=== PATIENT | male | born 1995 | race African-American/Black ===

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

== ENCOUNTER 2017-02-15 10:17 | Emergency (ER) | payer MEDICAID ==
[2017-02-15] MEDS: BOOSTRIX IM ONE (11:14)
--- NOTE | 2017-02-15 11:30 | Emergency Department Report ---
ED Laceration [facility] - HPI Chief Complaint: Wound/Laceration Stated Complaint: HEAD LACERATION Time Seen by Provider: 02/15/17 11:25 Location: Head Severity: mild Tetanus Status: Not up to Date Laceration Symptoms: No Foreign Body Sensation, No Numbness, No Weakness, No Pain ED Review of Systems ROS: Stated complaint: HEAD LACERATION Other details as noted in HPI Constitutional: denies: chills, fever Eyes: denies: eye pain, eye discharge, vision change ENT: denies: ear pain, throat pain Respiratory: denies: cough, shortness of breath, wheezing Cardiovascular: denies: chest pain, palpitations Endocrine: no symptoms reported Gastrointestinal: denies: abdominal pain, nausea, diarrhea Genitourinary: denies: urgency, dysuria Musculoskeletal: denies: back pain, joint swelling, arthralgia Skin: other (left ocipital scalp laceratio ). denies: rash, lesions ED Past Medical Hx - Past Medical History Previous Medical History?: Yes Hx Seizures: Yes Hx Psychiatric Treatment: Yes (ADHD) Additional medical history: Cerebral Palsy. scoliosis - Surgical History Past Surgical History?: Yes Additional Surgical History: undescended testicle. left hip surgery - Social History Smoking Status: Never Smoker Substance Use Type: None - Medications Home Medications: Home Medications Medication Instructions Recorded Confirmed Last Taken Type Benztropine [Cogentin] 1 mg PO DAILY 11/27/14 11/27/14 Unknown History Haloperidol [Haldol] 0.5 mg PO QAM 11/27/14 11/27/14 11/27/14 History Haloperidol [Haldol] 1 mg PO QHS 11/27/14 11/27/14 11/26/14 History Sertraline [Zoloft] 50 mg PO QHS 11/27/14 11/27/14 11/26/14 History levETIRAcetam [Keppra TAB] 250 mg PO BID #60 tablet 11/29/14 Unknown Rx Cephalexin [Keflex Oral Liq 250 500 mg PO Q12H #1 bottle 10/25/16 Unknown Rx mg/5 ML] Ibuprofen Oral Liqd [Motrin] 400 mg PO TID PRN #1 bottle 10/25/16 Unknown Rx Laceration Physical Exam - Exam General: Vital signs noted. No distress. Alert and acting appropriately. Wound Length (cm): 1 (less than 1 cm ) Laceration Location: Other (left occipital scalp) Laceration Exam: Yes Normal Distal CMS, No Foreign Body, No Exposed Tendon, Vessel, or Nerve, No Tendon Injury - Laceration /Wound Repair Left Posterior Head Wound Length (cm): 1 (less than 1 cm ) Wound's Depth, Shape: superficial Wound Explored: clean Irrigated w/ Saline (ccs): 10 Betadine Prep?: No Wound Debrided: non requiredc Number of Sutures: 1 (staple ) Layer Closure?: No Progress: pt presents wtih 1 left occipital scalp laceration s/p no bleeding at this time , there is no crepitus no stepoff nobleeding no hematoma there was no loc, wound closed with 1 staple all bleeding controlled mother given wound care instructions tetatnus administered, pt tolerated procedure with minimal distress. ED Medical Decision Making - Medical Decision Making pt isia 89 y/o ADHD, MR, pt who present with mother as primary care take pt fell while transfering from bed to chair this am witness by mom, no loc mild bleeding at time of incident, exam: no active bleeding no hematoma no crepitus no stepoff wound closed with staple x 1 pt tolerated with minimal distress mother given wound care instructions mother verbalized agreement and understanding of same Tdap administered at this time, pt will follow up with pcp Dr. Mary in 2-3 days mother given headinjury precaution instructions including symptoms to return to ed .mother verbalized understanding of same, there is no other injury , no neck pain no cp no sob pt is ambulatory to baseline, for dc to home with mother at this time. Critical care attestation.: If time is entered above; I have spent that time in minutes in the direct care of this critically ill patient, excluding procedure time. ED Disposition Clinical Impression: Scalp laceration Qualifiers: Encounter type: initial encounter Qualified Code(s): S01.01XA - Laceration without foreign body of scalp, initial encounter Disposition: DC-01 TO HOME OR SELFCARE Is pt being admited?: No Does the pt Need Aspirin: No Condition: Good Instructions: Laceration (ED), Staple Care (ED), Minor Head Injury (ED) Additional Instructions: follow up with Dr. Mary in 2-3 days return to emergency if symptom worsen. Referrals: PRIMARY CARE, [Primary Care Provider] - 3-5 Days Forms: Work/School Release Form(ED) Time of Disposition: 11:35
== END 2017-02-15 11:44 | disposition home or self-care (01) ==
LOC: ED 10:17
DX: S01.01XA Laceration without foreign body of scalp, initial encounter (principal); R56.9 Unspecified convulsions; X58.XXXA Exposure to other specified factors, initial encounter; Y93.9 Activity, unspecified; Y99.9 Unspecified external cause status; Y92.89 Other specified places as the place of occurrence of the external cause
CPT/HCPCS: 90471; 90715; 99282